=== PATIENT | male | born 1965 | race Caucasian/White ===

== ENCOUNTER 2021-08-22 17:25 | Emergency (ER) | payer BC ==
[~2021-08-22] VITALS: Ht 157.5 cm; Wt 69.5 kg
[2021-08-22] MEDS ORDERED: SILDENAFIL (17:51)
[2021-08-22] MEDS ORDERED: KEFLEX500 MG PO (19:47)
[2021-08-22] MEDS ORDERED: TRAMADOL HYDROC50 M1 PO (19:47)
[2021-08-22 20:02] VITALS: BP 99/57
== END 2021-08-22 20:07 | disposition home or self-care (01) | DRG 563 ==
LOC: ED 17:25
PROC: 0HQGXZZ Repair Left Hand Skin, External Approach (ICD-10-PCS; principal; 2021-08-22)
DX: S62.637B Displaced fracture of distal phalanx of left little finger, initial encounter for open fracture (principal); W23.0XXA Caught, crushed, jammed, or pinched between moving objects, initial encounter; Y93.89 Activity, other specified; Y92.009 Unspecified place in unspecified non-institutional (private) residence as the place of occurrence of the external cause